=== PATIENT | female | born 1970 | race Hispanic/Latino ===

== ENCOUNTER 2017-11-10 09:10 | Emergency (ER) | payer SELFPAY ==
[~2017-11-10 09:10] MED LIST: DOCU100C19; HYDR-4064; LORA1TAB3 PO; MELO-106; SERT50TA PO; TEMA15CA
[2017-11-10] MEDS ORDERED: DiphenhydrAMINE HCL 50 MG/ML VIAL ONE (10:18)
[2017-11-10 11:04] LABS: BASOPHILS % (AUTO) 0.6 % (0.0-5.0); EOSINOPHILS % (AUTO) 0.4 % (0.0-8.0); HEMATOCRIT 42.2 % (36-48); LYMPHOCYTES % (AUTO) 26.2 % (21.0-51.0); MEAN CORPUSCULAR HEMOGLOBIN 29.8 pg (27.0-33.0); MEAN CORPUSCULAR HGB CONC 33.7 g/dL (32.0-36.0); MEAN CORPUSCULAR VOLUME 88.4 fL (79-99); MONOCYTES % (AUTO) 5.2 % (3.0-13.0); NEUTROPHILS % (AUTO) 67.6 % (40.0-77.0); PLATELET COUNT (AUTO) 216 K/uL (130-400); RED BLOOD CELL COUNT(AUTO) 4.78 MIL/uL (4.00-5.50); RED CELL DISTRIBUTION WIDTH 12.2 % (11.0-15.5); WHITE BLOOD COUNT (AUTO) 11.5 K/uL (4.8-10.8)
[2017-11-10 11:15] LABS: CREATININE 0.8 mg/dL (0.5-1.5); POTASSIUM 4.5 mmol/L (3.5-5.1)
[2017-11-10 11:19] LABS: BILIRUBIN,TOTAL 0.3 mg/dL (0.2-1.0)
[2017-11-10 11:32] LABS: INR 0.93 (0.85-1.15); PARTIAL THROMBOPLASTIN TIME 27.1 SEC (26.3-35.5); PROTHROMBIN TIME 9.8 SEC (9.6-11.6)
== END 2017-11-10 13:39 | disposition home or self-care (01) ==
LOC: EDH 09:10
DX: M25.511 Pain in right shoulder (principal); R07.89 Other chest pain; R20.2 Paresthesia of skin; M54.2 Cervicalgia; Z72.0 Tobacco use
CPT/HCPCS: 36415; 71045; 80053; 84484 ×2; 85025; 85610; 85730; 93005 ×2; 96372; 99285; J1200

== ENCOUNTER 2018-01-01 17:39 | Emergency (ER) | payer SELFPAY ==
[2018-01-01 18:48] LABS: BASOPHILS % (AUTO) 0.6 % (0.0-5.0); EOSINOPHILS % (AUTO) 0.9 % (0.0-8.0); HEMATOCRIT 38.8 % (36-48); LYMPHOCYTES % (AUTO) 39.1 % (21.0-51.0); MEAN CORPUSCULAR HEMOGLOBIN 31.1 pg (27.0-33.0); MEAN CORPUSCULAR HGB CONC 34.6 g/dL (32.0-36.0); MEAN CORPUSCULAR VOLUME 89.7 fL (79-99); MONOCYTES % (AUTO) 8.5 % (3.0-13.0); NEUTROPHILS % (AUTO) 50.9 % (40.0-77.0); PLATELET COUNT (AUTO) 203 K/uL (130-400); RED BLOOD CELL COUNT(AUTO) 4.32 MIL/uL (4.00-5.50); WHITE BLOOD COUNT (AUTO) 9.7 K/uL (4.8-10.8)
[2018-01-01 19:01] LABS: CREATININE 0.9 mg/dL (0.5-1.5); POTASSIUM 3.8 mmol/L (3.5-5.1)
[2018-01-01 19:18] LABS: ALBUMIN 3.5 g/dL (3.5-5.0); BILIRUBIN,TOTAL 0.3 mg/dL (0.2-1.0); CREATINE KINASE MB 0.6 ng/mL (0.5-3.6); TOTAL PROTEIN, SERUM 7.4 g/dL (6.0-8.3)
[2018-01-01] MEDS ORDERED: TRAMADOL HCL 50 MG TABLET ONE (19:41)
[2018-01-01 19:56] LABS: INR 0.95 (0.85-1.15); PARTIAL THROMBOPLASTIN TIME 28.1 SEC (26.3-35.5)
== END 2018-01-01 20:21 | disposition home or self-care (01) ==
LOC: EDH 17:39
DX: R07.89 Other chest pain (principal); M79.631 Pain in right forearm; R05 Cough; Z88.1 Allergy status to other antibiotic agents; Z88.8 Allergy status to other drugs, medicaments and biological substances; Z88.6 Allergy status to analgesic agent
CPT/HCPCS: 36415; 71045; 73090; 80053; 82550; 82553; 84484; 85025; 85610; 85730; 93005